=== PATIENT | male | born 1980 | race Caucasian/White ===

== ENCOUNTER 2018-06-13 15:12 | Emergency (ER) | payer MEDICAID ==
[~2018-06-13] VITALS: Ht 177.8 cm; Wt 88.6 kg
[~2018-06-13 15:12] MED LIST: AMOX1TAB15 PO; NO HOME MEDS
[2018-06-13 15:17] VITALS: BP 121/89
[2018-06-13] MEDS ORDERED: ketorolac tromethamine 15mg/ml inj. IM ONE (16:20)
[2018-06-13] MEDS ORDERED: ORPH100T2 PO (16:22)
[2018-06-13] MEDS ORDERED: IBUP-1985 PO (16:22)
[2018-06-13] MEDS: orphenadrine citrate 60mg/2ml inj. IM ONE ×2 (16:25→16:29)
== END 2018-06-13 16:54 | disposition home or self-care (01) ==
LOC: ER 15:13
DX: M25.512 Pain in left shoulder (principal); R07.81 Pleurodynia; M54.5 Low back pain; F11.90 Opioid use, unspecified, uncomplicated; Z90.49 Acquired absence of other specified parts of digestive tract; Z79.2 Long term (current) use of antibiotics; Z79.899 Other long term (current) drug therapy; Z56.0 Unemployment, unspecified; X50.1XXA Overexertion from prolonged static or awkward postures, initial encounter; Y93.01 Activity, walking, marching and hiking; Y92.89 Other specified places as the place of occurrence of the external cause; Y99.8 Other external cause status
CPT/HCPCS: 73030; 96372; 99284; J1885; J2360

== ENCOUNTER 2018-12-14 16:42 | Emergency (ER) | payer MEDICAID ==
[~2018-12-14] VITALS: Ht 177.8 cm; Wt 90.9 kg
[~2018-12-14 16:42] MED LIST changes: +IBUP-1985 PO; +ORPH100T2 PO
[2018-12-14 16:57] VITALS: BP 127/83
[2018-12-14] MEDS ORDERED: ibuprofen tablet 400 MG TABLET PO ONE (18:55)
[2018-12-14 19:06] LABS: CLARITY,URINE CLEAR (Clear); COLOR,URINE AMBER (Yellow); GLUCOSE, URINE NEGATIVE (Neg); KETONES,URINE TRACE mg/dl (Neg); LEUKOCYTE ESTERASE ,URINE NEGATIVE (Neg); NITRITES, URINE NEGATIVE (Neg); OCCULT BLOOD,URINE NEGATIVE (Neg); PH,URINE 8.5 (4.8-8.0); PROTEIN,URINE 30 mg/dl (Neg); UA COLLECTION TYPE CLN CATCH MIDSTREAM; UROBILINOGEN,URINE >=8.0 E.U/dL (0.2-1.0)
[2018-12-14 19:12] LABS: BACTERIA,URINE NONE SEEN /HPF (Neg); MUCUS STRANDS NONE SEEN /LPF (Neg); SQUAMOUS EPITHELIAL CELL,UR FEW /LPF (FEW); WBC,URINE NONE SEEN /HPF (0-4)
[2018-12-14 19:17] LABS: URINE AMPHETAMINE SCREEN POSITIVE (Neg); URINE BARBITUATE SCREEN NEGATIVE (Neg); URINE BENZODIAZEPINES SCREEN NEGATIVE (Neg); URINE CANNABINOID SCREEN POSITIVE (Neg); URINE COCAINE SCREEN NEGATIVE (Neg); URINE METHADONE SCREEN NEGATIVE (Neg); URINE OPIATE SCREEN POSITIVE (Neg); URINE PHENCYCLIDINE SCREEN NEGATIVE (Neg)
== END 2018-12-14 19:54 | disposition home or self-care (01) ==
LOC: ER 16:43
DX: S61.237A Puncture wound without foreign body of left little finger without damage to nail, initial encounter (principal); R30.0 Dysuria; F12.90 Cannabis use, unspecified, uncomplicated; F11.90 Opioid use, unspecified, uncomplicated; F17.200 Nicotine dependence, unspecified, uncomplicated; Z90.49 Acquired absence of other specified parts of digestive tract; Z56.0 Unemployment, unspecified; Z86.19 Personal history of other infectious and parasitic diseases; W46.0XXA Contact with hypodermic needle, initial encounter; Y93.89 Activity, other specified; Y92.89 Other specified places as the place of occurrence of the external cause; Y99.9 Unspecified external cause status
CPT/HCPCS: 73120; 80305; 81001; 99284